=== PATIENT | male | born 1940 | race Caucasian/White ===

== ENCOUNTER 2017-07-18 15:09 | Observation (INO) ==
[2017-07-18 15:37] LABS: Basophils % 0.3 % (0.0-0.8); Eosinophils # 0.1 10*3/uL (0.0-0.87); Hematocrit 40.1 VOL% (42.0-52.0); Hemoglobin 13.3 GM/DL (14.0-18.0); Immature Granulocytes % 0.5 %; Immature Granulocytes Absolute 0.04 #; Lymphocytes % 10.9 % (21.2-54.2); Mean Corpuscular HGB Conc 33.2 GM/DL (32-36); Mean Corpuscular Hemoglobin 31 PG (27-34); Mean Corpuscular Volume 92.4 FL (87-102); Mean Platelet Volume 9.1 FL (9.6-12.0); Monocytes # 0.7 10*3/uL (0.11-0.8); Monocytes % 7.5 % (1.7-12.7); Neutrophils % 79.8 % (38.7-73.9); Platelet Count 191 T/CUMM (130-400); Red Blood Count 4.34 MC/CUMM (3.8-5.5); White Blood Count 8.7 T/CUMM (4-12)
[2017-07-18 15:46] LABS: Partial Thromboplastin Time 29.9 SECS (0-40)
[2017-07-18 15:58] LABS: Albumin 2.9 G/DL (3.4-5.0); Bilirubin,Total 1.2 MG/DL (0.2-1.0); Calcium 8.6 MG/DL (8.5-10.1); Osmolality,Calculated 278.7 MOS/KG (273-304); Potassium 4.5 MMOL/L (3.5-5.1); Total Protein 6.4 G/DL (6.4-8.3)
[2017-07-18 16:00] LABS: Troponin I Only < 0.015 NG/ML (0.00-0.045)
[2017-07-18] MEDS ORDERED: FUROSEMIDE 40 MG/4 ML VIAL IV STA (16:33)
[2017-07-18] MEDS ORDERED: methylPREDNISolone SOD SUC 125 MG/2 ML VIAL IV STA (16:33)
[2017-07-18] MEDS ORDERED: ONDANSETRON 4 MG/2 ML VIAL IV STA (16:33)
[2017-07-18] MEDS ORDERED: MORPHINE 4 MG/1 ML VIAL IV STA (16:33)
[2017-07-18] MEDS ORDERED: ASPIRIN 325 MG TABLET PO STA (16:33)
[2017-07-18] MEDS ORDERED: ALBUTEROL/IPRATROPIUM 3 ML NEB RESP TX STA (16:33)
[2017-07-18 16:53] LABS: Rheumatoid Factor < 15 IU/ML (<15)
[2017-07-18] MEDS ORDERED: ONDANSETRON 4 MG/2 ML VIAL IV PRN (19:44)
[2017-07-18] MEDS ORDERED: ACETAMINOPHEN 325 MG TABLET PO PRN (19:44)
[2017-07-18] MEDS ORDERED: ALBUTEROL/IPRATROPIUM 3 ML NEB RESP TX PRN (19:44)
[2017-07-18] MEDS ORDERED: CETIRIZINE 10 MG TABLET PO PRN (19:46)
[2017-07-18] MEDS: SODIUM CHLORIDE 0.9% 1,000 ML IV SCH (22:57)
[2017-07-18] MEDS: BUDESONIDE/FORMOTEROL 160-4.5 INHALER 6 GM INH SCH (22:57)
[2017-07-18] MEDS: ENOXAPARIN 40 MG/0.4 ML SYRINGE SUBCUT SCH (22:57)
[2017-07-19] MEDS: ALBUTEROL/IPRATROPIUM 3 ML NEB RESP TX SCH ×4 (00:08→19:26)
[2017-07-19] MEDS: methylPREDNISolone SOD SUC 40 MG/1 ML VIAL IV SCH ×3 (02:10→21:23)
[2017-07-19 05:04] LABS: Hematocrit 36.4 VOL% (42.0-52.0); Hemoglobin 12.1 GM/DL (14.0-18.0); Immature Granulocytes % 0.6 %; Immature Granulocytes Absolute 0.03 #; Lymphocytes # 0.5 10*3/uL (1.4-4.0); Lymphocytes % 9.1 % (21.2-54.2); Mean Corpuscular HGB Conc 33.2 GM/DL (32-36); Mean Corpuscular Hemoglobin 31 PG (27-34); Mean Corpuscular Volume 91.7 FL (87-102); Mean Platelet Volume 9.3 FL (9.6-12.0); Monocytes # 0.1 10*3/uL (0.11-0.8); Monocytes % 1.4 % (1.7-12.7); Neutrophils # 4.4 10*3/uL (1.4-7.4); Neutrophils % 88.9 % (38.7-73.9); Platelet Count 185 T/CUMM (130-400); Red Blood Count 3.97 MC/CUMM (3.8-5.5)
[2017-07-19 05:17] LABS: Apearance,Urine CLEAR (Clear); Bilirubin,Urine Negative (Negative); Blood, Urine Negative (Negative); Glucose,Urine (UA) Negative (Negative); Ketones,Urine Negative (Negative); Mucus,Urine Occasional /LPF (Occasional); Nitrite,Urine Negative (Negative); Protein,Urine Negative; RBC,Urine 1 /HPF (0-4); Urine Color Yellow (Yellow); Urine Specific Gravity 1.032 (1.001-1.035); Urine Urobilinogen < 2.0 EU/DL (0.2-1.0); WBC,Urine 1 /HPF (0-6)
[2017-07-19 05:36] LABS: Calcium 7.9 MG/DL (8.5-10.1); Osmolality,Calculated 284.7 MOS/KG (273-304); Potassium 4.6 MMOL/L (3.5-5.1)
[2017-07-19] MEDS: BUDESONIDE/FORMOTEROL 160-4.5 INHALER 6 GM INH SCH ×2 (09:30→20:35)
[2017-07-19] MEDS: SODIUM CHLORIDE 0.9% 1,000 ML IV SCH (12:43)
[2017-07-19] MEDS: ENOXAPARIN 40 MG/0.4 ML SYRINGE SUBCUT SCH (20:35)
[2017-07-20] MEDS: ALBUTEROL/IPRATROPIUM 3 ML NEB RESP TX SCH ×3 (00:27→13:20)
[2017-07-20 05:57] LABS: Immunoglobulin A (Chem) 208 MG/DL (70-400); Immunoglobulin G (Chem) 791 MG/DL (700-1600); Immunoglobulin M (Chem) 114 MG/DL (40-230)
[2017-07-20 09:33] LABS: Albumin (SPE) 3.2 G/DL (3.2-5.3); Albumin (SPE) Rel % 52.5 %; Alpha 1 (SPE) 0.3 G/DL (0.1-0.4); Alpha 1 (SPE) Rel % 5.7 %; Alpha 2 (SPE) 0.9 G/DL (0.4-1.0)
[2017-07-20 09:34] LABS: Alpha 2 (SPE) Rel % 15.7 %; Beta (SPE) 0.9 G/DL (0.5-1.1); Beta (SPE) Rel % 13.7 %; Gamma (SPE) 0.7 G/DL (0.7-1.7); Gamma (SPE) Rel % 12.4 %
[2017-07-20] MEDS: BUDESONIDE/FORMOTEROL 160-4.5 INHALER 6 GM INH SCH (09:49)
[2017-07-20] MEDS: methylPREDNISolone SOD SUC 40 MG/1 ML VIAL IV SCH (09:49)
[2017-07-20 10:01] LABS: Immuno Free Light Chain Kappa 1.41 MG/DL (0.33-1.94); Immuno Free Light Chain Lambda 1.35 MG/DL (0.57-2.63); Immuno Free Light Chain Ratio 1.04 MG/DL (0.26-1.65)
[2017-07-20 12:02] VITALS: BP 146/84
== END 2017-07-20 13:30 | disposition home or self-care (01) ==
LOC: N.EDINP 15:09 → N.ED 15:09 → N.EDINP 21:04 → N.2E 21:40
PROVIDERS: ADMIT Internal Medicine; ATTEND Internal Medicine

== ENCOUNTER 2019-06-20 22:57 | Inpatient (IN) ==
[2019-06-20 23:54] LABS: Basophils % 0.3 % (0.0-0.8); Eosinophils # 0.2 10*3/uL (0.0-0.87); Eosinophils % 1.2 % (0.00-10.9); Hemoglobin 13.2 GM/DL (14.0-18.0); Immature Granulocytes % 0.6 %; Immature Granulocytes Absolute 0.08 #; Lymphocytes # 0.8 10*3/uL (1.4-4.0); Lymphocytes % 6.3 % (21.2-54.2); Mean Corpuscular Volume 92.8 FL (87-102); Mean Platelet Volume 8.7 FL (9.6-12.0); Monocytes % 9.5 % (1.7-12.7); Neutrophils % 82.1 % (38.7-73.9); Platelet Count 271 T/CUMM (130-400); Red Blood Count 4.31 MC/CUMM (3.8-5.5); Red Cell Distribution Width 12.7 % (9.3-17.3); White Blood Count 13.1 T/CUMM (4-12)
[2019-06-21] MEDS ORDERED: AZITHROMYCIN INJ 500 MG in SODIUM CHLORIDE 0.9% 250 ML IV STA (00:04)
[2019-06-21] MEDS ORDERED: cefTRIAXone 1,000 MG in SODIUM CHLORIDE 0.9% 100 ML IV STA (00:04)
[2019-06-21] MEDS ORDERED: methylPREDNISolone SOD SUC 125 MG/2 ML VIAL IV STA (00:04)
[2019-06-21 00:18] LABS: Alanine Aminotransferase 70 U/L (16-61); Albumin 2.2 G/DL (3.4-5.0); Alkaline Phosphatase 157 U/L (45-117); Aspartate Amino Transferase 85 U/L (0-37); Blood Urea Nitrogen 24 MG/DL (7-18); Calcium 8.6 MG/DL (8.5-10.1); Estimated Glom Filtration Rate 74 ML/MIN; Ferritin 882.5 ng/ml (26-388); Glucose 110 MG/DL (74-106); Osmolality,Calculated 272.2 MOS/KG (273-304); Total Protein 6.9 G/DL (6.4-8.3); Troponin I < 0.015 NG/ML (0.00-0.045)
[2019-06-21 00:21] LABS: Apearance,Urine CLEAR (Clear); Bilirubin,Urine Negative (Negative); Blood, Urine Negative (Negative); Glucose,Urine (UA) Negative (Negative); Hyaline Casts,Urine 1 /LPF (0-3); Ketones,Urine 5 mg/dL (Negative); Mucus,Urine Many /LPF (Occasional); Nitrite,Urine Negative (Negative); Protein,Urine 30 MG/DL; RBC,Urine 3 /HPF (0-4); Squamous Epithelial Cell,Urine Occasional /HPF (0-10); Urine Color Amber (Yellow); Urine Specific Gravity 1.027 (1.001-1.035); WBC,Urine 1 /HPF (0-6)
[2019-06-21] MEDS ORDERED: HYDROXYCHLOROQUINE 200 MG TABLET PO SCH (00:30)
[2019-06-21 00:33] LABS: INR 1.3; PT Patient Result 13.9 SECS (9.8-11.9); Partial Thromboplastin Time 31.3 SECS (23.9-33.8)
[2019-06-21] MEDS ORDERED: ZALEPLON 5 MG CAPSULE PO PRN (00:33)
[2019-06-21] MEDS ORDERED: DEXTROSE 50% 25 GM/50 ML SYRINGE IV PRN (00:33)
[2019-06-21] MEDS ORDERED: GLUCAGON 1 MG VIAL IM PRN (00:33)
[2019-06-21] MEDS ORDERED: ONDANSETRON 4 MG/2 ML VIAL IV PRN (00:33)
[2019-06-21] MEDS ORDERED: HYDROXYCHLOROQUINE 200 MG TABLET PO STA (00:35)
[2019-06-21] MEDS ORDERED: ALBUTEROL SULFATE INH PRN (00:44)
[2019-06-21] MEDS ORDERED: CETIRIZINE 10 MG TABLET PO PRN (00:44)
[2019-06-21 00:48] LABS: Barbiturates Screen,Urine Negative (Negative); Benzodiazepines Screen,Urine Negative (Negative); Cannabinoid Screen,Urine Negative (Negative); Opiate Screen,Urine Positive (Negative); Phencyclidine Screen,Urine Negative (Negative)
[2019-06-21 06:02] LABS: Basophils % 0.2 % (0.0-0.8); Eosinophils % 0.1 % (0.00-10.9); Hematocrit 42.7 VOL% (42.0-52.0); Hemoglobin 13.8 GM/DL (14.0-18.0); Immature Granulocytes % 0.8 %; Immature Granulocytes Absolute 0.08 #; Lymphocytes # 0.5 10*3/uL (1.4-4.0); Lymphocytes % 4.8 % (21.2-54.2); Mean Corpuscular HGB Conc 32.3 GM/DL (32-36); Mean Corpuscular Volume 94.7 FL (87-102); Mean Platelet Volume 9.2 FL (9.6-12.0); Monocytes % 1.8 % (1.7-12.7); Neutrophils % 92.3 % (38.7-73.9); Platelet Count 291 T/CUMM (130-400); Red Blood Count 4.51 MC/CUMM (3.8-5.5); Red Cell Distribution Width 12.8 % (9.3-17.3); White Blood Count 10.1 T/CUMM (4-12)
[2019-06-21] MEDS: ENOXAPARIN 40 MG/0.4 ML SYRINGE SUBCUT SCH (06:10)
[2019-06-21 06:24] LABS: Hypochromasia Slight; Lymphocytes 3 % (20-55); Microcytosis Slight; Segmented Neutrophils 94 % (50-85); Total Cells Counted 100
[2019-06-21 06:25] LABS: Platelet Estimate Normal
[2019-06-21 06:34] LABS: Albumin 2.3 G/DL (3.4-5.0); Bilirubin,Total 1.5 MG/DL (0.2-1.0); Calcium 8.8 MG/DL (8.5-10.1); Osmolality,Calculated 278.8 MOS/KG (273-304); Total Protein 7.1 G/DL (6.4-8.3)
[2019-06-21] MEDS ORDERED: PANTOPRAZOLE 40 MG TABLET PO SCH (09:00)
[2019-06-21] MEDS: ZINC SULFATE 220 MG CAPSULE PO SCH (09:30)
[2019-06-21] MEDS ORDERED: HYDROXYCHLOROQUINE 200 MG TABLET PO ONE (18:00)
[2019-06-21] MEDS: AZITHROMYCIN 250 MG TABLET PO SCH (20:45)
[2019-06-22] MEDS: ENOXAPARIN 40 MG/0.4 ML SYRINGE SUBCUT SCH (10:55)
[2019-06-22] MEDS: cefTRIAXone 1,000 MG in SYRINGE 1 EACH IV SCH (10:56)
[2019-06-22] MEDS: BUDESONIDE/FORMOTEROL 160-4.5 INHALER 6 GM INH SCH ×2 (10:58→20:44)
[2019-06-22] MEDS: HYDROXYCHLOROQUINE 200 MG TABLET PO SCH ×2 (10:59→20:43)
[2019-06-22] MEDS: GABAPENTIN 300 MG CAPSULE PO SCH ×2 (16:31→20:43)
[2019-06-22] MEDS: DUTASTERIDE 0.5 MG CAPSULE PO SCH (16:31)
[2019-06-22] MEDS: AZITHROMYCIN 250 MG TABLET PO SCH (20:44)
[2019-06-23 09:08] LABS: Basophils % 0.2 % (0.0-0.8); Eosinophils # 0.1 10*3/uL (0.0-0.87); Eosinophils % 0.7 % (0.00-10.9); Hematocrit 41.9 VOL% (42.0-52.0); Hemoglobin 13.8 GM/DL (14.0-18.0); Immature Granulocytes % 0.6 %; Immature Granulocytes Absolute 0.07 #; Lymphocytes % 9.1 % (21.2-54.2); Mean Corpuscular HGB Conc 32.9 GM/DL (32-36); Mean Corpuscular Volume 93.5 FL (87-102); Mean Platelet Volume 8.6 FL (9.6-12.0); Monocytes % 7.1 % (1.7-12.7); Neutrophils % 82.3 % (38.7-73.9); Platelet Count 330 T/CUMM (130-400); Red Blood Count 4.48 MC/CUMM (3.8-5.5); Red Cell Distribution Width 12.8 % (9.3-17.3); White Blood Count 10.8 T/CUMM (4-12)
[2019-06-23] MEDS: DUTASTERIDE 0.5 MG CAPSULE PO SCH (09:10)
[2019-06-23] MEDS: HYDROXYCHLOROQUINE 200 MG TABLET PO SCH (09:10)
[2019-06-23] MEDS: ATORVASTATIN 80 MG TABLET PO SCH (09:10)
[2019-06-23] MEDS: ASPIRIN CHEW 81 MG TABLET PO SCH (09:10)
[2019-06-23] MEDS: predniSONE 1 MG TABLET PO SCH (09:10)
[2019-06-23] MEDS: GABAPENTIN 300 MG CAPSULE PO SCH ×3 (09:10→20:42)
[2019-06-23] MEDS: ENOXAPARIN 40 MG/0.4 ML SYRINGE SUBCUT SCH (09:10)
[2019-06-23] MEDS: CYANOCOBALAMIN 100 MCG TABLET PO SCH (09:10)
[2019-06-23] MEDS: CALCIUM (CARBONATE) 500 MG TABLET PO SCH (09:11)
[2019-06-23] MEDS: cefTRIAXone 1,000 MG in SYRINGE 1 EACH IV SCH (09:11)
[2019-06-23] MEDS: ZINC SULFATE 220 MG CAPSULE PO SCH (09:11)
[2019-06-23] MEDS: BUDESONIDE/FORMOTEROL 160-4.5 INHALER 6 GM INH SCH ×2 (09:21→20:42)
[2019-06-23 09:27] LABS: Calcium 8.3 MG/DL (8.5-10.1); Osmolality,Calculated 279.5 MOS/KG (273-304)
[2019-06-23] MEDS: SPIRIVA RESPIMAT INH SCH (10:09)
[2019-06-23] MEDS ORDERED: TUBERCULIN SKIN TEST 0.1 ML SYRINGE INTRADERM ONE (16:09)
[2019-06-23] MEDS: AZITHROMYCIN 250 MG TABLET PO SCH (20:42)
[2019-06-23] MEDS: ACETAMINOPHEN 325 MG TABLET PO PRN (20:54)
[2019-06-24] MEDS: ASPIRIN CHEW 81 MG TABLET PO SCH (08:26)
[2019-06-24] MEDS: CYANOCOBALAMIN 100 MCG TABLET PO SCH (08:27)
[2019-06-24] MEDS: predniSONE 1 MG TABLET PO SCH (08:27)
[2019-06-24] MEDS: cefTRIAXone 1,000 MG in SYRINGE 1 EACH IV SCH (08:27)
[2019-06-24] MEDS: GABAPENTIN 300 MG CAPSULE PO SCH ×3 (08:27→20:01)
[2019-06-24] MEDS: DUTASTERIDE 0.5 MG CAPSULE PO SCH (08:27)
[2019-06-24] MEDS: ATORVASTATIN 80 MG TABLET PO SCH (08:27)
[2019-06-24] MEDS: CALCIUM (CARBONATE) 500 MG TABLET PO SCH (08:27)
[2019-06-24] MEDS: SPIRIVA RESPIMAT INH SCH (08:28)
[2019-06-24] MEDS: BUDESONIDE/FORMOTEROL 160-4.5 INHALER 6 GM INH SCH ×2 (08:28→20:01)
[2019-06-24] MEDS: ACETAMINOPHEN 325 MG TABLET PO PRN ×2 (08:47→17:30)
[2019-06-24] MEDS: ENOXAPARIN 40 MG/0.4 ML SYRINGE SUBCUT SCH (09:45)
[2019-06-24] MEDS: AZITHROMYCIN 250 MG TABLET PO SCH (20:01)
[2019-06-25] MEDS: ACETAMINOPHEN 325 MG TABLET PO PRN ×3 (01:46→23:55)
[2019-06-25 07:03] LABS: Basophils % 0.2 % (0.0-0.8); Eosinophils # 0.2 10*3/uL (0.0-0.87); Eosinophils % 1.6 % (0.00-10.9); Hematocrit 40.4 VOL% (42.0-52.0); Hemoglobin 12.9 GM/DL (14.0-18.0); Immature Granulocytes % 1.1 %; Immature Granulocytes Absolute 0.17 #; Lymphocytes # 1.1 10*3/uL (1.4-4.0); Lymphocytes % 7.3 % (21.2-54.2); Mean Corpuscular HGB Conc 31.9 GM/DL (32-36); Mean Corpuscular Volume 93.7 FL (87-102); Mean Platelet Volume 8.9 FL (9.6-12.0); Neutrophils % 83.8 % (38.7-73.9); Platelet Count 376 T/CUMM (130-400); Red Blood Count 4.31 MC/CUMM (3.8-5.5); Red Cell Distribution Width 12.7 % (9.3-17.3); White Blood Count 15.3 T/CUMM (4-12)
[2019-06-25 07:17] LABS: Calcium 8.2 MG/DL (8.5-10.1)
[2019-06-25] MEDS: ENOXAPARIN 40 MG/0.4 ML SYRINGE SUBCUT SCH (10:28)
[2019-06-25] MEDS: DUTASTERIDE 0.5 MG CAPSULE PO SCH (10:28)
[2019-06-25] MEDS: ASPIRIN CHEW 81 MG TABLET PO SCH (10:28)
[2019-06-25] MEDS: predniSONE 1 MG TABLET PO SCH (10:29)
[2019-06-25] MEDS: ATORVASTATIN 80 MG TABLET PO SCH (10:29)
[2019-06-25] MEDS: BUDESONIDE/FORMOTEROL 160-4.5 INHALER 6 GM INH SCH ×2 (10:30→20:23)
[2019-06-25] MEDS: CYANOCOBALAMIN 100 MCG TABLET PO SCH (10:30)
[2019-06-25] MEDS: CALCIUM (CARBONATE) 500 MG TABLET PO SCH (10:30)
[2019-06-25] MEDS: cefTRIAXone 1,000 MG in SYRINGE 1 EACH IV SCH (10:30)
[2019-06-25] MEDS: GABAPENTIN 300 MG CAPSULE PO SCH ×3 (10:30→20:23)
[2019-06-25] MEDS: SPIRIVA RESPIMAT INH SCH (10:31)
[2019-06-26 03:52] LABS: Basophils % 0.3 % (0.0-0.8); Eosinophils # 0.3 10*3/uL (0.0-0.87); Eosinophils % 1.8 % (0.00-10.9); Hematocrit 39.3 VOL% (42.0-52.0); Hemoglobin 12.6 GM/DL (14.0-18.0); Immature Granulocytes % 1.4 %; Lymphocytes # 1.2 10*3/uL (1.4-4.0); Lymphocytes % 8.2 % (21.2-54.2); Mean Corpuscular HGB Conc 32.1 GM/DL (32-36); Mean Corpuscular Volume 93.8 FL (87-102); Mean Platelet Volume 8.5 FL (9.6-12.0); Monocytes % 7.1 % (1.7-12.7); Neutrophils % 81.2 % (38.7-73.9); Platelet Count 372 T/CUMM (130-400); Red Blood Count 4.19 MC/CUMM (3.8-5.5); Red Cell Distribution Width 12.7 % (9.3-17.3); White Blood Count 14.7 T/CUMM (4-12)
[2019-06-26 04:21] LABS: Calcium 8.1 MG/DL (8.5-10.1); Osmolality,Calculated 276.7 MOS/KG (273-304)
[2019-06-26] MEDS: predniSONE 1 MG TABLET PO SCH (09:00)
[2019-06-26] MEDS: BUDESONIDE/FORMOTEROL 160-4.5 INHALER 6 GM INH SCH ×2 (09:00→21:31)
[2019-06-26] MEDS: SPIRIVA RESPIMAT INH SCH (09:00)
[2019-06-26] MEDS: CALCIUM (CARBONATE) 500 MG TABLET PO SCH (09:00)
[2019-06-26] MEDS: ENOXAPARIN 40 MG/0.4 ML SYRINGE SUBCUT SCH (09:00)
[2019-06-26] MEDS: ASPIRIN CHEW 81 MG TABLET PO SCH (09:00)
[2019-06-26] MEDS: CYANOCOBALAMIN 100 MCG TABLET PO SCH (09:00)
[2019-06-26] MEDS: DUTASTERIDE 0.5 MG CAPSULE PO SCH (09:00)
[2019-06-26] MEDS: ATORVASTATIN 80 MG TABLET PO SCH (09:00)
[2019-06-26] MEDS: cefTRIAXone 1,000 MG in SYRINGE 1 EACH IV SCH (09:00)
[2019-06-26] MEDS: GABAPENTIN 300 MG CAPSULE PO SCH ×3 (09:00→21:31)
[2019-06-26] MEDS ORDERED: predniSONE 20 MG TABLET PO SCH (16:42)
[2019-06-26 17:54] LABS: INR 1.2; Partial Thromboplastin Time 30.1 SECS (23.9-33.8)
[2019-06-26] MEDS: AMOXICILLIN/CLAV 875 MG TABLET PO SCH (21:31)
[2019-06-27] MEDS: CALCIUM (CARBONATE) 500 MG TABLET PO SCH (10:23)
[2019-06-27] MEDS: ATORVASTATIN 80 MG TABLET PO SCH (10:23)
[2019-06-27] MEDS: GABAPENTIN 300 MG CAPSULE PO SCH (10:24)
[2019-06-27] MEDS: CYANOCOBALAMIN 100 MCG TABLET PO SCH (10:24)
[2019-06-27] MEDS: DUTASTERIDE 0.5 MG CAPSULE PO SCH (10:24)
[2019-06-27] MEDS: AMOXICILLIN/CLAV 875 MG TABLET PO SCH (10:24)
[2019-06-27] MEDS: ENOXAPARIN 40 MG/0.4 ML SYRINGE SUBCUT SCH (10:25)
[2019-06-27] MEDS: BUDESONIDE/FORMOTEROL 160-4.5 INHALER 6 GM INH SCH (10:25)
[2019-06-27] MEDS: ASPIRIN CHEW 81 MG TABLET PO SCH (10:25)
[2019-06-27] MEDS: SPIRIVA RESPIMAT INH SCH (10:26)
[2019-06-27 11:48] VITALS: BP 117/57
== END 2019-06-27 14:18 | disposition home or self-care (01) | DRG 195 ==
LOC: N.ED 22:57 → SUPCPDRO 06-21 00:33 → SUATTDRO 06-21 00:33 → N.EDINP 06-21 00:33 → N.2W 06-21 01:02 → N.3E 06-26 17:39
PROVIDERS: ADMIT Internal Medicine; ATTEND Internal Medicine

== ENCOUNTER 2019-07-07 15:07 | Inpatient (IN) ==
[2019-07-07] MEDS ORDERED: methylPREDNISolone SOD SUC 125 MG/2 ML VIAL IV STA (16:47)
[2019-07-07] MEDS ORDERED: AZITHROMYCIN INJ 500 MG in SODIUM CHLORIDE 0.9% 250 ML IV STA (16:47)
[2019-07-07] MEDS ORDERED: VANCOMYCIN INJ 1,000 MG in SODIUM CHLORIDE 0.9% 250 ML IV ONE (18:00)
[2019-07-07 18:52] LABS: Basophils % 0.5 % (0.0-0.8); Eosinophils # 0.3 10*3/uL (0.0-0.87); Eosinophils % 3.2 % (0.00-10.9); Hematocrit 40.6 VOL% (42.0-52.0); Hemoglobin 13.4 GM/DL (14.0-18.0); Immature Granulocytes % 0.5 %; Immature Granulocytes Absolute 0.04 #; Lymphocytes # 1.8 10*3/uL (1.4-4.0); Lymphocytes % 22.3 % (21.2-54.2); Mean Corpuscular Volume 90.6 FL (87-102); Monocytes % 7.1 % (1.7-12.7); Neutrophils % 66.4 % (38.7-73.9); Platelet Count 320 T/CUMM (130-400); Red Blood Count 4.48 MC/CUMM (3.8-5.5); Red Cell Distribution Width 13.1 % (9.3-17.3); White Blood Count 7.9 T/CUMM (4-12)
[2019-07-07 19:02] LABS: Alanine Aminotransferase 88 U/L (16-61); Albumin 2.4 G/DL (3.4-5.0); Alkaline Phosphatase 143 U/L (45-117); Aspartate Amino Transferase 32 U/L (0-37); Blood Urea Nitrogen 21 MG/DL (7-18); Calcium 8.5 MG/DL (8.5-10.1); Estimated Glom Filtration Rate 88 ML/MIN; Ferritin 401.8 ng/ml (26-388); Glucose 78 MG/DL (74-106); Osmolality,Calculated 278.5 MOS/KG (273-304); Total Protein 7.4 G/DL (6.4-8.3); Troponin I < 0.015 NG/ML (0.00-0.045)
[2019-07-07] MEDS ORDERED: ONDANSETRON 4 MG/2 ML VIAL IV PRN (23:16)
[2019-07-07] MEDS ORDERED: BENZONATATE 100 MG CAPSULE PO PRN (23:16)
[2019-07-07] MEDS ORDERED: ALBUTEROL 2.5 MG/3 ML NEB RESP TX PRN (23:16)
[2019-07-07] MEDS ORDERED: ACETAMINOPHEN 325 MG TABLET PO PRN (23:16)
[2019-07-07] MEDS ORDERED: DOCUSATE SODIUM 100 MG CAPSULE PO PRN (23:16)
[2019-07-08] MEDS: ENOXAPARIN 40 MG/0.4 ML SYRINGE SUBCUT SCH ×2 (00:56→21:30)
[2019-07-08] MEDS: BUDESONIDE/FORMOTEROL 160-4.5 INHALER 6 GM INH SCH ×3 (00:56→21:30)
[2019-07-08] MEDS: LEVOFLOXACIN INJ 750 MG in PREMIX 1 EACH IV SCH ×2 (01:43→23:45)
[2019-07-08] MEDS: PIPERACILLIN/TAZOBACTAM 3,375 MG in SODIUM CHLORIDE 0.9% 100 ML IV SCH ×3 (02:56→18:03)
[2019-07-08] MEDS: DUTASTERIDE 0.5 MG CAPSULE PO SCH (08:46)
[2019-07-08] MEDS: FLUTICASONE 50 MCG NASAL SPRAY 16 GM BOTTLE BOTH NARES SCH (08:46)
[2019-07-08] MEDS: FOLIC ACID 1 MG TABLET PO SCH (08:46)
[2019-07-08] MEDS: ASPIRIN CHEW 81 MG TABLET PO SCH (08:46)
[2019-07-08] MEDS: CYANOCOBALAMIN 100 MCG TABLET PO SCH (08:47)
[2019-07-08] MEDS: CALCIUM (CARBONATE) 500 MG TABLET PO SCH (08:47)
[2019-07-08] MEDS: GABAPENTIN 300 MG CAPSULE PO SCH ×3 (08:47→21:30)
[2019-07-08] MEDS: VANCOMYCIN INJ 1,000 MG in SODIUM CHLORIDE 0.9% 250 ML IV SCH ×2 (08:47→22:03)
[2019-07-08] MEDS: predniSONE 20 MG TABLET PO SCH (08:47)
[2019-07-08] MEDS: ATORVASTATIN 40 MG TABLET PO SCH (08:47)
[2019-07-08 08:57] LABS: Hematocrit 38.6 VOL% (42.0-52.0); Hemoglobin 12.7 GM/DL (14.0-18.0); Immature Granulocytes % 0.3 %; Immature Granulocytes Absolute 0.02 #; Lymphocytes # 0.7 10*3/uL (1.4-4.0); Lymphocytes % 10.6 % (21.2-54.2); Mean Corpuscular HGB Conc 32.9 GM/DL (32-36); Mean Corpuscular Volume 90.6 FL (87-102); Mean Platelet Volume 8.9 FL (9.6-12.0); Monocytes % 0.8 % (1.7-12.7); Neutrophils % 88.3 % (38.7-73.9); Platelet Count 305 T/CUMM (130-400); Red Blood Count 4.26 MC/CUMM (3.8-5.5); White Blood Count 6.4 T/CUMM (4-12)
[2019-07-08] MEDS ORDERED: Tiotropium Bromide [Spiriva Respimat] INH SCH (09:00)
[2019-07-08 09:23] LABS: Calcium 8.6 MG/DL (8.5-10.1); Osmolality,Calculated 283.5 MOS/KG (273-304)
[2019-07-09] MEDS: PIPERACILLIN/TAZOBACTAM 3,375 MG in SODIUM CHLORIDE 0.9% 100 ML IV SCH ×3 (02:56→17:53)
[2019-07-09 05:53] LABS: Basophils % 0.1 % (0.0-0.8); Eosinophils % 0.1 % (0.00-10.9); Hematocrit 36.6 VOL% (42.0-52.0); Hemoglobin 11.8 GM/DL (14.0-18.0); Immature Granulocytes % 0.4 %; Immature Granulocytes Absolute 0.06 #; Lymphocytes # 1.5 10*3/uL (1.4-4.0); Lymphocytes % 10.6 % (21.2-54.2); Mean Corpuscular HGB Conc 32.2 GM/DL (32-36); Mean Corpuscular Volume 94.1 FL (87-102); Mean Platelet Volume 8.9 FL (9.6-12.0); Monocytes % 4.5 % (1.7-12.7); Neutrophils % 84.3 % (38.7-73.9); Platelet Count 294 T/CUMM (130-400); Red Blood Count 3.89 MC/CUMM (3.8-5.5); Red Cell Distribution Width 13.2 % (9.3-17.3); White Blood Count 13.9 T/CUMM (4-12)
[2019-07-09 06:28] LABS: Calcium 8.2 MG/DL (8.5-10.1)
[2019-07-09] MEDS: VANCOMYCIN INJ 1,000 MG in SODIUM CHLORIDE 0.9% 250 ML IV SCH ×2 (08:08→21:33)
[2019-07-09] MEDS: FLUTICASONE 50 MCG NASAL SPRAY 16 GM BOTTLE BOTH NARES SCH (08:08)
[2019-07-09] MEDS: DUTASTERIDE 0.5 MG CAPSULE PO SCH (08:08)
[2019-07-09] MEDS: CALCIUM (CARBONATE) 500 MG TABLET PO SCH (08:08)
[2019-07-09] MEDS: FOLIC ACID 1 MG TABLET PO SCH (08:08)
[2019-07-09] MEDS: predniSONE 20 MG TABLET PO SCH (08:08)
[2019-07-09] MEDS: BUDESONIDE/FORMOTEROL 160-4.5 INHALER 6 GM INH SCH ×2 (08:08→21:33)
[2019-07-09] MEDS: GABAPENTIN 300 MG CAPSULE PO SCH ×3 (08:08→21:33)
[2019-07-09] MEDS: CYANOCOBALAMIN 100 MCG TABLET PO SCH (08:08)
[2019-07-09] MEDS: ASPIRIN CHEW 81 MG TABLET PO SCH (08:08)
[2019-07-09] MEDS: ATORVASTATIN 40 MG TABLET PO SCH (08:08)
[2019-07-09] MEDS ORDERED: traMADol 50 MG TABLET PO PRN (12:47)
[2019-07-09] MEDS: ENOXAPARIN 40 MG/0.4 ML SYRINGE SUBCUT SCH (21:33)
[2019-07-10] MEDS: LEVOFLOXACIN INJ 750 MG in PREMIX 1 EACH IV SCH
[2019-07-10] MEDS: PIPERACILLIN/TAZOBACTAM 3,375 MG in SODIUM CHLORIDE 0.9% 100 ML IV SCH ×3 (05:00→17:00)
[2019-07-10 05:46] LABS: Basophils % 0.4 % (0.0-0.8); Eosinophils # 0.1 10*3/uL (0.0-0.87); Eosinophils % 0.8 % (0.00-10.9); Hematocrit 36.3 VOL% (42.0-52.0); Hemoglobin 11.7 GM/DL (14.0-18.0); Immature Granulocytes % 0.8 %; Immature Granulocytes Absolute 0.07 #; Lymphocytes # 1.8 10*3/uL (1.4-4.0); Mean Corpuscular HGB Conc 32.2 GM/DL (32-36); Mean Corpuscular Volume 93.6 FL (87-102); Mean Platelet Volume 8.8 FL (9.6-12.0); Monocytes % 6.5 % (1.7-12.7); Neutrophils % 72.5 % (38.7-73.9); Platelet Count 256 T/CUMM (130-400); Red Blood Count 3.88 MC/CUMM (3.8-5.5); Red Cell Distribution Width 13.2 % (9.3-17.3); White Blood Count 9.3 T/CUMM (4-12)
[2019-07-10 06:02] LABS: Calcium 7.8 MG/DL (8.5-10.1); Osmolality,Calculated 283.3 MOS/KG (273-304)
[2019-07-10] MEDS: FLUTICASONE 50 MCG NASAL SPRAY 16 GM BOTTLE BOTH NARES SCH (08:33)
[2019-07-10] MEDS: ASPIRIN CHEW 81 MG TABLET PO SCH (08:34)
[2019-07-10] MEDS: DUTASTERIDE 0.5 MG CAPSULE PO SCH (08:34)
[2019-07-10] MEDS: FOLIC ACID 1 MG TABLET PO SCH (08:34)
[2019-07-10] MEDS: ATORVASTATIN 40 MG TABLET PO SCH (08:34)
[2019-07-10] MEDS: VANCOMYCIN INJ 1,000 MG in SODIUM CHLORIDE 0.9% 250 ML IV SCH ×2 (08:34→23:50)
[2019-07-10] MEDS: GABAPENTIN 300 MG CAPSULE PO SCH ×3 (08:35→21:10)
[2019-07-10] MEDS: CYANOCOBALAMIN 100 MCG TABLET PO SCH (08:35)
[2019-07-10] MEDS: CALCIUM (CARBONATE) 500 MG TABLET PO SCH (08:35)
[2019-07-10] MEDS: BUDESONIDE/FORMOTEROL 160-4.5 INHALER 6 GM INH SCH ×2 (08:35→21:10)
[2019-07-10] MEDS: predniSONE 20 MG TABLET PO SCH (08:36)
[2019-07-10] MEDS: ENOXAPARIN 40 MG/0.4 ML SYRINGE SUBCUT SCH (21:10)
[2019-07-11] MEDS: LEVOFLOXACIN INJ 750 MG in PREMIX 1 EACH IV SCH (00:43)
[2019-07-11] MEDS: PIPERACILLIN/TAZOBACTAM 3,375 MG in SODIUM CHLORIDE 0.9% 100 ML IV SCH (02:15)
[2019-07-11] MEDS: VANCOMYCIN INJ 1,000 MG in SODIUM CHLORIDE 0.9% 250 ML IV SCH (08:18)
[2019-07-11] MEDS: FOLIC ACID 1 MG TABLET PO SCH (08:22)
[2019-07-11] MEDS: GABAPENTIN 300 MG CAPSULE PO SCH (08:23)
[2019-07-11] MEDS: DUTASTERIDE 0.5 MG CAPSULE PO SCH (08:23)
[2019-07-11] MEDS: CYANOCOBALAMIN 100 MCG TABLET PO SCH (08:23)
[2019-07-11] MEDS: predniSONE 20 MG TABLET PO SCH (08:23)
[2019-07-11] MEDS: ATORVASTATIN 40 MG TABLET PO SCH (08:23)
[2019-07-11] MEDS: CALCIUM (CARBONATE) 500 MG TABLET PO SCH (08:23)
[2019-07-11] MEDS: ASPIRIN CHEW 81 MG TABLET PO SCH (08:23)
[2019-07-11] MEDS: FLUTICASONE 50 MCG NASAL SPRAY 16 GM BOTTLE BOTH NARES SCH (08:52)
[2019-07-11] MEDS: BUDESONIDE/FORMOTEROL 160-4.5 INHALER 6 GM INH SCH (08:52)
[2019-07-11 12:35] VITALS: BP 130/76
[2019-07-11 22:31] LABS: Fungitell Quantitative Value 182 pg/mL (<60 pg/mL)
== END 2019-07-11 14:41 | disposition home or self-care (01) | DRG 197 ==
LOC: N.ED 15:07 → N.EDINP 15:07 → SUATTDRO 20:27 → N.EDINP 22:37 → N.2E 23:15 → SUATTDRO 07-08 14:34
PROVIDERS: ADMIT Family Medicine; ATTEND Internal Medicine